=== PATIENT | female | born 1965 | race American Indian/Alaskan Native ===

== ENCOUNTER 2018-11-01 19:14 | Emergency (ER) | payer SELFPAY ==
[2018-11-01] MEDS ORDERED: TYLENOL PO ONE (19:37)
[2018-11-01] MEDS ORDERED: TYLENOL ONE (19:39)
[2018-11-01] MEDS ORDERED: IBUPROFEN PO ONE (21:13)
--- NOTE | 2018-11-01 21:13 | Emergency Department Report ---
ED Fall HPI - General Chief Complaint: Fall Stated Complaint: FELL ON JOB Time Seen by Provider: 11/01/18 21:12 Source: patient Mode of arrival: Ambulatory - History of Present Illness Initial Comments: This is a 53-year-old female who reports that she felt were 2 days ago and now she is reporting right humerus and right knee pain. She said her pain is 7 out of 10 worse with movement and better at rest in. Denies any head injury. Denies any medical or surgical history. Denies any nausea or vomiting or numbness or tingling to extremities. MD Complaint: fall Onset/Timin -: days(s) Fall From: standing (accidental) When Fall Occurred: # days [employer] (2 days) Fall Witnessed: yes, by bystander Place Fall Occurred: work Loss of Consciousness: none Prolonged Down Time?: no Symptoms Prior to Fall: none Location - Extremities: Right: Arm (pain), Knee (pain) Severity: severe Severity scale (0 -10): 7 Quality: aching Context: tripped/slipped Associated Symptoms: denies: headache, neck pain, numbness, weakness, chest paint, shortness of breath, abdominal pain, hematuria, unable to walk, lightheaded, vertigo, confusion - Related Data Previous Rx's Medication Instructions Recorded Last Taken Type Ibuprofen [Motrin] 800 mg PO Q8HR PRN #12 tablet 11/01/18 Unknown Rx traMADol [Ultram 50 MG tab] 50 mg PO Q6HR PRN #1 tablet 11/01/18 Unknown Rx Allergies Allergy/AdvReac Type Severity Reaction Status Date / Time No Known Allergies Allergy Unverified 11/01/18 19:33 ED Review of Systems ROS: Stated complaint: FELL ON JOB Other details as noted in HPI Constitutional: denies: chills, fever Eyes: denies: eye pain, vision change ENT: denies: throat pain, congestion Respiratory: denies: cough, shortness of breath, wheezing Cardiovascular: denies: chest pain, palpitations, edema, syncope Gastrointestinal: denies: abdominal pain, nausea, vomiting, hematemesis, hematochezia Genitourinary: denies: urgency, dysuria, hematuria Musculoskeletal: arthralgia. denies: back pain, joint swelling, myalgia Skin: denies: rash Neurological: denies: headache, weakness, numbness, paresthesias, confusion, abnormal gait, vertigo ED Past Medical Hx - Past Medical History Previous Medical History?: No - Surgical History Past Surgical History?: No - Family History Family history: no significant - Social History Smoking Status: Current Every Day Smoker Substance Use Type: None - Medications Home Medications: Home Medications Medication Instructions Recorded Confirmed Last Taken Type Ibuprofen [Motrin] 800 mg PO Q8HR PRN #12 tablet 11/01/18 Unknown Rx traMADol [Ultram 50 MG tab] 50 mg PO Q6HR PRN #1 tablet 11/01/18 Unknown Rx ED Physical Exam - General Limitations: No Limitations General appearance: alert, in no apparent distress - Head Head exam: Present: atraumatic, normocephalic, normal inspection, other (normal exam) - Eye Eye exam: Present: normal appearance, PERRL, EOMI. Absent: nystagmus, periorbital swelling, periorbital tenderness Pupils: Present: normal accommodation - ENT ENT exam: Present: normal exam, normal orophraynx, mucous membranes moist - Neck Neck exam: Present: normal inspection, full ROM, other (no C-spine tenderness). Absent: tenderness, lymphadenopathy - Respiratory Respiratory exam: Present: normal lung sounds bilaterally. Absent: respiratory distress, chest wall tenderness - Cardiovascular Cardiovascular Exam: Present: regular rate, normal rhythm, normal heart sounds - GI/Abdominal GI/Abdominal exam: Present: soft, distended, tenderness, normal bowel sounds. Absent: rigid - Extremities Exam Extremities exam: Present: normal inspection, full ROM, normal capillary refill, other (No cce. + 2 pulses in all extremities, no neurovascular compromise). Absent: tenderness, pedal edema, joint swelling - Expanded Upper Extremity Exam Right General: Present: normal inspection. Absent: abrasion, nail injury (#), foreign body, amputation, avulsion Shoulder Exam: Present: normal inspection, full ROM. Absent: tenderness, swelling, abrasion, laceration, ecchymosis, deformity, crepidus, dislocation, erythema, tenderness over AC joint Upper Arm exam: Present: normal inspection, full ROM, tenderness (mild tenderness with palpation anterior midarm). Absent: swelling, abrasion, laceration, ecchymosis, deformity, crepidus, dislocation, erythema Elbow exam: Present: normal inspection, full ROM. Absent: tenderness, swelling, abrasion, laceration, ecchymosis, deformity, crepidus, dislocation, erythema, effusion, pain w/ pronation/supination, tenderness over radial head Forearm Wrist exam: Present: normal inspection, full ROM. Absent: tenderness, swelling, abrasion, laceration, ecchymosis, deformity, crepidus, dislocation, erythema, tenderness over anatomical snuff box, pain with axial thumb loading Hand Wrist exam: Present: full ROM. Absent: tenderness, swelling Neuro motor exam: Present: wrist extension intact, thumb opposition intact, thumb IP flexion intact, thumb adduction intact, fingers 2-5 abduction intact Neurosensory exam: Present: radial nerve intact, ulnar nerve intact, median nerve intact Vascular: Present: normal capillary refill, radial pulse, brachial pulse, ulnar pulse. Absent: vascular compromise, Pallo, pulse deficit radial art, pulse deficit ulnar art, pulse deficit brachial art - Expanded Lower Extremity Exam Right Hip exam: Present: normal inspection. Absent: full ROM, tenderness, swelling, abrasion, laceration, ecchymosis, deformity, dislocation, erythema, external rotation, internal rotation, shortening, pelvic stability Upper Leg exam: Present: normal inspection, full ROM. Absent: tenderness, swelling, abrasion, laceration, ecchymosis, deformity, crepidus, dislocation, erythema Knee exam: Present: normal inspection, full ROM (she reports pain with extension of her knee), tenderness (mild tenderness anteriorly), full knee extension. Absent: swelling, abrasion, laceration, ecchymosis, deformity, crepidus, dislocation, erythema, effusion, pain w/ pronation/supination, posterior draw sign, pain/laxity with valgus, pain/laxity with varus Lower Leg exam: Present: normal inspection, full ROM. Absent: tenderness, swelling, abrasion, laceration, ecchymosis, deformity, crepidus, dislocation, erythema, palpable cord, Earnestine's sign Ankle exam: Present: normal inspection, full ROM. Absent: tenderness, swelling, abrasion, laceration, ecchymosis, deformity, crepidus, dislocation, erythema Foot/Toe exam: Present: normal inspection, full ROM. Absent: tenderness, swelling, abrasion, laceration, ecchymosis, deformity, crepidus, dislocation, erythema, amputation, puncture wound, foreign body, calcaneal tenderness, tenderness at base of 5th metatarsal, nail avulsion, subungual hematoma Neuro vascular tendon exam: Present: no vascular compromise. Absent: pulse deficit, abnormal cap refill, motor deficit, sensory deficit, tendon deficit, extremity cold to touch, pallor, abnormal 2-point discrimination, decreased fine/light touch, foot drop, peroneal nerve deficit, significant pain with passive ROM of distal joint Gait: Positive: observed and limited by pain - Back Exam Back exam: Present: normal inspection, full ROM, other (ambulates without any difficulties). Absent: tenderness, muscle spasm, paraspinal tenderness, vertebral tenderness, rash noted - Neurological Exam Neurological exam: Present: alert, oriented X3, normal gait, reflexes normal, other (no focal deficits). Absent: motor sensory deficit - Psychiatric Psychiatric exam: Present: normal affect, normal mood - Skin Skin exam: Present: warm, dry, intact, normal color. Absent: rash ED Course Vital Signs 11/01/18 19:23 Temperature 98.3 F Pulse Rate 100 H Respiratory 16 Rate Blood Pressure 141/89 O2 Sat by Pulse 98 Oximetry - Reevaluation(s) Reevaluation #1: 11/01/18 22:05 Patient given Tylenol 650 mg emergency room for pain. She was later given Motrin 800 mg by mouth which better relief or pain ED Medical Decision Making - Radiology Data Radiology results: report reviewed X-ray of right knee and right humerus reveals no acute abnormalities. This was dictated by radiologist and report reviewed by myself. Findings [facility] [address] [place] [address] XRay Report Signed Patient: MAGNO ZAPATA MR#: [id number] : 1965 Acct:[id number] Age/Sex: 53 / F ADM Date: 11/01/18 Loc: ED Attending Dr: Ordering Physician: WESLEY DECKER MD Date of Service: 11/01/18 Procedure(s): XR humerus 2+V RT Accession Number(s): [id number] cc: WESLEY DECKER MD Fluoro Time In Minutes: FINAL REPORT PROCEDURE: XR HUMERUS 2+V RT TECHNIQUE: RIGHT humerus radiographs, AP and lateral views. HISTORY: pain after fall COMPARISON: No prior studies are available for comparison. FINDINGS: Fracture (s) and/or Dislocation(s): None . Joint space(s): Normal. Soft tissues: Normal. Bone mineralization: Normal. Foreign bodies: None. IMPRESSION: Normal Examination. Transcribed By: [facility] [place] Dictated By: EDDI NOE Electronically Authenticated By: EDDI NOE Signed Date/Time: 11/01/182124 DD/ 23 TD/TT: 11/01/182123 Findings [facility] [address] [place] [address] XRay Report Signed Patient: MAGNO ZAPATA MR#: [id number] : 1965 Acct:[id number] Age/Sex: 53 / F ADM Date: 11/01/18 Loc: ED Attending Dr: Ordering Physician: WESLEY DECKER MD Date of Service: 11/01/18 Procedure(s): XR knee 1-2V RT Accession Number(s): [id number] cc: WESLEY DECKER MD Fluoro Time In Minutes: FINAL REPORT PROCEDURE: XR KNEE 1-2V RT TECHNIQUE: RIGHT knee radiographs, AP and lateral views. CPT 25216 HISTORY: pain after fall COMPARISON: No prior studies are available for comparison. FINDINGS: Fracture (s) and/or Dislocation(s): None . Alignment: Normal . Joint space(s): Normal . Soft tissues: Normal . Bone mineralization: Normal . Foreign bodies: None . IMPRESSION: Normal Examination. Transcribed By: [facility] [place] Dictated By: EDDI NOE Electronically Authenticated By: EDDI NOE Signed Date/Time: 11/01/182125 DD/ 24 09 Local 1 the emergency medical operation anemia for any disease is right now I will be following the - Medical Decision Making This is a 53-year-old female here reported that she fell work accidentally 2 days ago and injured her right arm and right knee and she is having pain. X-ray of right knee and right humerus reveals no acute findings. This was dictated by radiologist and report reviewed by myself. Physical findings for normal right knee and right humerus except she has minimal tenderness to palpate but no swelling or bruising noted. Patient was given Tylenol 650 mg and later Motrin 800 mg by mouth and pain is better. Her vital signs stable she is afebrile and patient discharged home to follow up with orthopedic doctor and 3-5 days. Given prescription for Ultram and Motrin. - Differential Diagnosis fracture, dislocation, strain, sprain, MSK pain Critical care attestation.: If time is entered above; I have spent that time in minutes in the direct care of this critically ill patient, excluding procedure time. ED Disposition Clinical Impression: Arthralgia of multiple sites Accidental fall Qualifiers: Encounter type: initial encounter Qualified Code(s): W19.XXXA - Unspecified fall, initial encounter Disposition: TO HOME OR SELFCARE Is pt being admited?: No Does the pt Need Aspirin: No Condition: Stable Instructions: Arthralgia (ED), Knee Pain (ED), Knee Exercises (GEN), Fall Prevention (ED) Additional Instructions: Please follow up with orthopedics any primary care physician in 3-5 days Take medication as prescribed but please not take Ultram if here driving or operating heavy machinery at this medication causes drowsiness. Take for severe pain Take Motrin for mild to moderate pain but please take this medication with food as it causes irritation to stomach If he condition worsens, return to the emergency room otherwise follow-up at orthopedic and primary care physician. Referrals: REYNALDO JUNIOR MD [Staff Physician] - 3-5 Days [facility] [Outside] - 3-5 Days Forms: Work/School Release Form(ED)
--- NOTE | 2018-11-01 21:25 | XRay Report ---
FINAL REPORT PROCEDURE: XR HUMERUS 2+V RT TECHNIQUE: RIGHT humerus radiographs, AP and lateral views. HISTORY: pain after fall COMPARISON: No prior studies are available for comparison. FINDINGS: Fracture (s) and/or Dislocation(s): None . Joint space(s): Normal. Soft tissues: Normal. Bone mineralization: Normal. Foreign bodies: None. IMPRESSION: Normal Examination.
--- NOTE | 2018-11-01 21:26 | XRay Report ---
FINAL REPORT PROCEDURE: XR KNEE 1-2V RT TECHNIQUE: RIGHT knee radiographs, AP and lateral views. CPT 77480 HISTORY: pain after fall COMPARISON: No prior studies are available for comparison. FINDINGS: Fracture (s) and/or Dislocation(s): None . Alignment: Normal . Joint space(s): Normal . Soft tissues: Normal . Bone mineralization: Normal . Foreign bodies: None . IMPRESSION: Normal Examination.
[2018-11-03 12:46] VITALS: BP 141/89
== END 2018-11-01 22:36 | disposition home or self-care (01) ==
LOC: ED 19:14
DX: M25.561 Pain in right knee (principal); M79.601 Pain in right arm; F17.200 Nicotine dependence, unspecified, uncomplicated; W01.0XXA Fall on same level from slipping, tripping and stumbling without subsequent striking against object, initial encounter; Y93.89 Activity, other specified; Y92.69 Other specified industrial and construction area as the place of occurrence of the external cause; Y99.8 Other external cause status